=== PATIENT | male | born 1975 | race African-American/Black ===

== ENCOUNTER 2023-10-20 10:22 | Emergency (ER) | payer SELFPAY ==
[2023-10-20 10:26] VITALS: BP 150/129; PULSE 99; RESP 21; TEMP 36.6; O2SAT 100
--- NOTE | 2023-10-20 10:30 | DI.RAD_ITS ---
Exam(s) XR FOOT RT COMPLETE EXAM: XR FOOT RT COMPLETE CLINICAL HISTORY: foot pain. TECHNIQUE: 2D digital imaging was performed. Three views. COMPARISON: No exams were available for comparison FINDINGS: BONES: No acute fracture is present. No bony destructive lesion is seen. JOINTS: No dislocation present. SOFT TISSUE: Normal. IMPRESSION: Unremarkable radiographs of the right foot. DATA REPOSITORY: RADIATION DOSE DELIVERED:
--- NOTE | 2023-10-20 10:36 | ED.GENADUL_ITS ---
[facility] General Date/Time Provider Initiated Documentation: 10/20/23 10:24 . Limitations to Documentation: no limitations . Information obtained by: patient . History of Present Illness 48 year old M presents to the emergency department with the chief complaint of right foot pain, described as moderate, Quality is described as aching, and is localized to the right and lower extremity. Patient reports no radiation. and it has been constant. No relieving factors improve symptom(s), No exacerbating factors reported . Patient notes no other symptoms.; denies chest pain, fever/chills and shortness of breath. Patient did receive the following treatments prior to arrival, none Related Data Home Medications Medication Instructions Recorded Confirmed amlodipine 10 mg tablet 10 mg PO DAILY 30 days #30 tabs 10/20/23 lisinopril 10 mg tablet 10 mg PO DAILY 30 days #30 tabs 10/20/23 prednisone 20 mg tablet 60 mg (3 x 20 mg) PO DAILY 5 days 10/20/23 #15 tabs Previous Rx's Medication Instructions Recorded amlodipine 10 mg tablet 10 mg PO DAILY 30 days #30 tabs 10/20/23 lisinopril 10 mg tablet 10 mg PO DAILY 30 days #30 tabs 10/20/23 prednisone 20 mg tablet 60 mg (3 x 20 mg) PO DAILY 5 days 10/20/23 #15 tabs Allergies Allergy/AdvReac Type Severity Reaction Status Date / Time No Known Drug Allergies Allergy Mild Other (See Verified 10/20/23 10:26 Comment) General Stated Complaint: Orthopedic BENITEZ: 3 Review of Systems All systems reviewed & are unremarkable except as noted in HPI and below Constitutional Constitutional: Denies chills, Denies fever(s) and Denies weakness Cardiovascular Cardiovascular: Denies chest pain and Denies dyspnea Respiratory Respiratory: Denies cough and Denies dyspnea Gastrointestinal Gastrointestinal: Denies abdominal pain, Denies nausea and Denies vomiting Neurologic Neurologic: Denies weakness Exam Const General: no acute distress Orientation: alert HENMT Head: normal to inspection Ears: external ears normal General nose exam: external nose normal Mouth: moist mucous membranes Eyes General: appearance normal, both eyes and all related structures Neck Neck: normal visual inspection Resp Effort & Inspection: normal respiratory effort and able to speak in complete sentences Cardio Rate: regular rate Skin General skin exam: no rashes or lesions noted Neuro General: patient alert and patient oriented x3 Extrem General: normal to inspection, full ROM and capillary refill normal Psych Mental Status: mental status grossly normal Course Vital Signs Vital signs: Vital Signs Temperature 36.6 C 10/20/23 10:26 Pulse 99 H 10/20/23 10:26 Respiratory Rate 21 10/20/23 10:26 Blood Pressure 150/129 H 10/20/23 10:26 Pulse Oximetry 100 10/20/23 10:26 Temperature 36.6 C 10/20/23 10:26 Temperature Source Oral 10/20/23 10:26 Pulse 99 H 10/20/23 10:26 Respiratory Rate 21 10/20/23 10:26 Respiratory Effort Normal, Non-Labored 10/20/23 10:34 Blood Pressure 150/129 H 10/20/23 10:26 Pulse Oximetry 100 10/20/23 10:26 Oxygen Delivery Method Room Air 10/20/23 10:26 Oxygen Flow Rate 0 10/20/23 10:26 Pain Level 8 10/20/23 10:32 Medical Decision Making 68-year-old male with a history of hypertension, states he has a history of plantar fasciitis in the past as well, who comes in with 1 to 2 weeks of plantar foot pain. He denies any trauma, is in town working at [employer] where he stands on his feet for prolonged periods of time. He denies any fevers, no rashes. He is oriented x 4 and appears well on arrival, he localizes the pain to the right midfoot on the plantar surface and is tenderness here, no visible or palpable deformity, has full range of motion of his foot and ankle. No erythema, no calf tenderness. No leg swelling. History and exam are consistent with likely plantar fasciitis, will obtain x-rays to rule out stress fracture. X-ray negative, patient stable, no new findings on exam. Suspect plantar fasciitis. Will provide walking boot, patient declines to have crutches. He also requests a refill of his blood pressure medications which I sent in a 30- day supply for him. Advised to follow-up with either express care or primary care in 1 to 2 weeks if not improving, return precautions given Differential Diagnosis Differential Diagnosis: Plantar fasciitis, stress fracture Imaging Data Radiologic Study: Attestation: I personally reviewed and interpreted this imaging study as follows: Imaging: X-Ray Radiologist's impression: no acute findings Quality:SDOH Health Related Social Needs: No Data to Display ON LICENSE OF [facility] All Active Problems (Updated 10/20/23 @ 11:13 by Arnie Kemp MD) Foot pain, right (Acute) Plantar fasciitis (Acute) Social History Smoking/Tobacco Use Status: Current every day Tobacco Type: cigarettes Smoking risk assessment performed?: Yes Alcohol Intake: current Alcohol Intake frequency: holidays/special occasions only Drug use: Never Substance use type: does not use Housing: other Do you feel safe at home: No Do you feel safe in your relationship?: No PAWSS Have you Been Recently Intoxicated or Drunk Within the Last 30 days?: No Have you Ever Experienced Previous Episodes of Alcohol Withdrawal?: No Have you ever Experienced Withdrawal Seizures?: No Have you ever Experienced Delirium Tremens(DT)s?: No Have you ever undergone Alcohol Rehabilitation Treatment (i.e, inpt ot outpatient treatment programs)?: No Have you ever Experienced Blackouts?: No Have you ever Combined Alcohol with other Downers within the last 90 days?: No Have you ever Combined Alcohol with any other Substance of Abuse during the last 90 days?: No Positive Blood Alcohol level on Presentation? [PCS.BAL]: No Evidence of Increased Autonomic Activity (i.e. HR>120, tremor, sweating, agitation, nausea)?: No Result: 0 Discharge Plan Disposition Patient Disposition: Home Condition: Stable Discharge Details Clinical Impression: Plantar fasciitis, Foot pain, right Primary Care Provider: None,None ED Provider: Arnie Kemp Home Meds and New Rx's Prescriptions: New prednisone 20 mg tablet 60 mg PO DAILY 5 Days Qty: 15 0RF Continued amlodipine 10 mg tablet 10 mg PO DAILY 30 Days Qty: 30 0RF lisinopril 10 mg tablet 10 mg PO DAILY 30 Days Qty: 30 0RF Discharge Instructions Additional Instructions: Your x-ray did not show any concerning findings. You can take ibuprofen 600 mg every 6 hours as needed If not better in 1 to 2 weeks or starting to improve follow-up with either your primary care or urgent care If you feel more ill, have high fevers or severe worsening pain return to the emergency department
[2023-10-20] MEDS: Ibuprofen 600 MG TAB PO (10:38)
[2023-10-20 11:36] VITALS: BP 161/114; PULSE 81; RESP 14; O2SAT 100
== END 2023-10-20 11:39 | disposition home or self-care (01) ==
LOC: ER 11:42
PROVIDERS: Emergency Provider Emergency Medicine
DX: M79.671 Pain in right foot (principal); M72.2 Plantar fascial fibromatosis; I10 Essential (primary) hypertension
CPT/HCPCS: 99283; 73630